=== PATIENT | female | born 1975 | race Caucasian/White ===

== ENCOUNTER → 2017-08-16 | Outpatient (CLI) | payer OTHER ==
[2017-08-16 18:24] LABS: BASO % 0.1 %; BASO ABS # 0.02 K/uL (0-0.2); EOS % 0.4 %; EOS ABS # 0.06 K/uL (0-0.5); HEMATOCRIT 31.3 % (37-47); HEMOGLOBIN 9.1 g/dL (12.0-16.0); IG# 0.06 K/uL (0.00-0.02); LYMPH % 24.8 %; LYMPH ABS # 3.56 K/uL (1.2-3.4); MEAN CELL VOLUME 74.3 fL (80-100); MEAN CORPUSCULAR HEMOGLOBIN 21.6 pg (25-34); MEAN CORPUSCULAR HGB CONC 29.1 g/dl (32-36); MEAN PLATELET VOLUME 9.9 fL (7.4-10.4); MONO % 5.8 %; MONO ABS # 0.83 K/uL (0.11-0.59); NEUT % 68.5 %; PLATELET COUNT 370 K/uL (130-400); RED CELL DISTRIBUTION WIDTH SD 48.8 fL (36.4-46.3); WHITE BLOOD COUNT 14.33 K/uL (4.8-10.8)
[2017-08-16 18:42] LABS: BLOOD UREA NITROGEN 20 mg/dl (7-18); CALCIUM 8.7 mg/dl (8.5-10.1); CARBON DIOXIDE 25 mmol/L (21-32); CREATININE 0.91 mg/dl (0.60-1.20); GLUCOSE 127 mg/dl (70-99); POTASSIUM 3.7 mmol/L (3.5-5.1); SODIUM 137 mmol/L (136-145)
[2017-08-17 06:22] LABS: HEMOGLOBIN A1C 7.4 % (4.5-5.6)
== END | disposition home or self-care (01) ==
LOC: C.LABMFLN 16:08
PROVIDERS: ATTEND Family Medicine
DX: R42 Dizziness and giddiness (principal); E11.9 Type 2 diabetes mellitus without complications

== ENCOUNTER → 2017-11-08 | Outpatient (CLI) | payer OTHER ==
[2017-11-08 17:49] LABS: BASO % 0.2 %; BASO ABS # 0.02 K/uL (0-0.2); EOS % 0.9 %; HEMOGLOBIN 12.1 g/dL (12.0-16.0); IG# 0.03 K/uL (0.00-0.02); LYMPH % 22.5 %; LYMPH ABS # 2.37 K/uL (1.2-3.4); MEAN CELL VOLUME 85.8 fL (80-100); MEAN CORPUSCULAR HGB CONC 30.3 g/dl (32-36); MEAN PLATELET VOLUME 10.8 fL (7.4-10.4); MONO ABS # 0.63 K/uL (0.11-0.59); NEUT % 70.1 %; PLATELET COUNT 279 K/uL (130-400); RED CELL DISTRIBUTION WIDTH CV 24.2 % (11.5-14.5); RED CELL DISTRIBUTION WIDTH SD 72.7 fL (36.4-46.3); WHITE BLOOD COUNT 10.55 K/uL (4.8-10.8)
[2017-11-08 18:16] LABS: BLOOD UREA NITROGEN 13 mg/dl (7-18); CALCIUM 9.1 mg/dl (8.5-10.1); CARBON DIOXIDE 29 mmol/L (21-32); CREATININE 0.95 mg/dl (0.60-1.20); GLUCOSE 79 mg/dl (70-99); POTASSIUM 3.8 mmol/L (3.5-5.1); SODIUM 141 mmol/L (136-145); TRANSFERRIN 297 mg/dl (200-360)
[2017-11-09 06:37] LABS: HEMOGLOBIN A1C 6.7 % (4.5-5.6)
== END | disposition home or self-care (01) ==
LOC: C.LABMFLN 15:28
PROVIDERS: ATTEND Family Medicine
DX: D64.9 Anemia, unspecified (principal); E06.3 Autoimmune thyroiditis; E11.9 Type 2 diabetes mellitus without complications